=== PATIENT | female | born 1990 | race Caucasian/White ===

== ENCOUNTER 2017-08-28 09:00 | Observation (INO) | payer OTHER ==
[~2017-08-28] VITALS: Ht 157.5 cm; Wt 72.6 kg
== END 2017-08-28 10:45 | disposition home or self-care (01) ==
LOC: SPU 09:00
PROVIDERS: ADMIT Obstetrics & Gynecology; ATTEND Obstetrics & Gynecology
DX: Z04.1 Encounter for examination and observation following transport accident (principal); Z3A.35 35 weeks gestation of pregnancy
CPT/HCPCS: G0378

== ENCOUNTER 2017-10-01 04:55 | Inpatient (IN) | payer OTHER ==
[~2017-10-01] VITALS: Ht 157.5 cm; Wt 76.7 kg
[2017-10-01] MEDS ORDERED: OXYTOCIN/0.9 % SODIUM CHLORIDE 1,000 ML IV SCH ×2 (05:19→17:27)
[2017-10-01] MEDS ORDERED: LR 1,000 ML IV SCH (05:19)
[2017-10-01] MEDS ORDERED: LR 500 ML IV ONE ×2 (05:19→11:51)
[2017-10-01] MEDS ORDERED: LR 1,000 ML IV ONE (05:19)
[2017-10-01] MEDS ORDERED: NALBUPHINE HCL 10 MG/ML AMP IVP PRN (05:30)
[2017-10-01] MEDS ORDERED: NALBUPHINE HCL 10 MG/ML AMP IM PRN (05:30)
[2017-10-01] MEDS ORDERED: TERBUTALINE SULFATE 1 MG/ML VIAL SUBCUT ONE (05:30)
[2017-10-01] MEDS ORDERED: AMPICILLIN SODIUM 2 GM VIAL ONE (05:38)
[2017-10-01] MEDS ORDERED: AMPICILLIN SODIUM 2 GM in NS 100 ML IV ONE (06:00)
[2017-10-01 09:12] VITALS: BP_SYST 116
[2017-10-01 09:15] LABS: HEMATOCRIT 39.4 % (36-48); HEMOGLOBIN 13.4 g/dL (12.0-16.0); MEAN CORPUSCULAR HEMOGLOBIN 32 pg (27-31); MEAN CORPUSCULAR HGB CONC 34 % (32-36); MEAN CORPUSCULAR VOLUME 94 fL (79.0-98.0); PLATELET COUNT (AUTO) 209 K/uL (130-430); RED BLOOD CELL COUNT(AUTO) 4.18 MIL/uL (4.2-6.2); RED CELL DISTRIBUTION WIDTH 13.1 % (9.0-15.0); WHITE BLOOD COUNT (AUTO) 20.4 K/uL (4.8-10.8)
[2017-10-01 09:35] LABS: BAND % (MANUAL) 3 % (0-6); BASOPHILS % (MANUAL) 0 % (0-2); EOSINOPHILS % (MANUAL) 0 % (0-7); LYMPHOCYTES % (MANUAL) 6 % (20-46); MONOCYTES % (MANUAL) 4 % (0-11)
[2017-10-01] MEDS: AMPICILLIN SODIUM 1 GM in NS 50 ML IV SCH ×2 (09:59→14:12)
[2017-10-01] MEDS ORDERED: MORPHINE SULFATE 10 MG/ML VIAL ONE (10:52)
[2017-10-01] MEDS ORDERED: MORPHINE SULFATE 10 MG/ML VIAL IVP ONE (11:00)
[2017-10-01] MEDS ORDERED: fentaNYL CITRATE/PF 100 MCG/2 ML AMP ONE (11:26)
[2017-10-01] MEDS ORDERED: ROPIVACAINE 0.2% 100 ML ONE (11:27)
[2017-10-01] MEDS ORDERED: fentaNYL CITRATE/PF 100 MCG/2 ML AMP EP ONE (12:00)
[2017-10-01] MEDS ORDERED: FENT2mCg/mL-ROPIVA0.2%/NS EPID 150 ML EP SCH (12:00)
[2017-10-01] MEDS ORDERED: ePHEDrine sulfate 50 MG/ML VIAL IVP PRN (12:00)
[2017-10-01] MEDS ORDERED: OXYTOCIN/0.9 % SODIUM CHLORIDE 1,000 ML IV ONE (17:27)
[2017-10-01] MEDS ORDERED: OXYCODONE/ACETAMINOPHEN 5-325 TABLET PO PRN ×2 (17:30)
[2017-10-01] MEDS ORDERED: SENNOSIDES/DOCUSATE SODIUM 1 TAB TABLET(SENOKOT-S) PO PRN (17:30)
[2017-10-01] MEDS ORDERED: DOCUSATE SODIUM 100 MG CAPSULE PO PRN (17:30)
[2017-10-01] MEDS ORDERED: RHO(D) IMMUNE GLOBULIN/MALTOSE 1500 UNITS/1.3 ML (WINHRO) IM PRN (17:30)
[2017-10-01] MEDS ORDERED: ACETAMINOPHEN 325 MG TABLET PO PRN (17:30)
[2017-10-01] MEDS ORDERED: METHYLERGONOVINE MALEATE 0.2 MG TABLET PO PRN (17:30)
[2017-10-01] MEDS ORDERED: GLYCERIN/WITCH HAZEL (TUCKS PADS) TP PRN (17:30)
[2017-10-01] MEDS ORDERED: ANUSOL 1 EA SUPP.RECT (PREPARATION H) RC PRN (17:30)
[2017-10-01] MEDS ORDERED: LANOLIN 7 GM OINT. TP PRN (17:30)
[2017-10-01] MEDS ORDERED: DERMOPLAST SPRAY TP PRN (17:30)
[2017-10-01] MEDS ORDERED: MEASLES,MUMPS&RUBELLA VACC/PF 12500 UNIT/0.5 ML VIAL SUBQ PRN (17:30)
[2017-10-01] MEDS ORDERED: HYDROCORTISONE 0.5%, 28.35 GM TOPICAL CREAM TP PRN (17:30)
[2017-10-01] MEDS ORDERED: IBUPROFEN 600 MG TABLET ONE (18:08)
[2017-10-01] MEDS ORDERED: TEMAZEPAM 15 MG CAPSULE PO PRN (21:00)
[2017-10-02] MEDS: IBUPROFEN 600 MG TABLET PO SCH ×4 (00:15→18:40)
[2017-10-02 06:22] LABS: BASOPHILS # (AUTO) 0.2 K/uL (0.0-0.2); EOSINOPHILS # (AUTO) 0.1 K/uL (0.0-0.4); EOSINOPHILS % (AUTO) 0.4 % (0.0-4.0); HEMATOCRIT 31.8 % (36-48); HEMOGLOBIN 10.8 g/dL (12.0-16.0); LYMPHOCYTES # (AUTO) 1.9 K/uL (1.0-5.5); LYMPHOCYTES % (AUTO) 11.1 % (20.5-51.5); MEAN CORPUSCULAR HEMOGLOBIN 32 pg (27-31); MEAN CORPUSCULAR HGB CONC 34 % (32-36); MEAN CORPUSCULAR VOLUME 96 fL (79.0-98.0); MONOCYTES # (AUTO) 1.2 K/uL (0.0-1.0); NEUTROPHILS # (AUTO) 13.5 K/uL (1.8-7.7); NEUTROPHILS % (AUTO) 80.5 % (40.0-70.0); PLATELET COUNT (AUTO) 190 K/uL (130-430); RED BLOOD CELL COUNT(AUTO) 3.32 MIL/uL (4.2-6.2); RED CELL DISTRIBUTION WIDTH 12.8 % (9.0-15.0); WHITE BLOOD COUNT (AUTO) 16.9 K/uL (4.8-10.8)
[2017-10-02] MEDS ORDERED: ROPIVACAINE 40 MG/20 ML AMP EP ONE (09:42)
[2017-10-02] MEDS ORDERED: MINERAL OIL 30 ML UDC PO ONE (09:46)
[2017-10-03] MEDS: IBUPROFEN 600 MG TABLET PO SCH (00:06)
== END 2017-10-03 11:00 | disposition home or self-care (01) | DRG 775 ==
LOC: SPU 04:55
PROVIDERS: ADMIT Obstetrics & Gynecology; ATTEND Obstetrics & Gynecology
PROC: 10E0XZZ Delivery of Products of Conception, External Approach (ICD-10-PCS; principal; 2017-10-01)
PROC: 3E0R3BZ Introduction of Anesthetic Agent into Spinal Canal, Percutaneous Approach (ICD-10-PCS; 2017-10-01)
PROC: 00HU33Z Insertion of Infusion Device into Spinal Canal, Percutaneous Approach (ICD-10-PCS; 2017-10-01)
DX: O99.824 Streptococcus B carrier state complicating childbirth (principal); Z37.0 Single live birth; Z3A.40 40 weeks gestation of pregnancy
CPT/HCPCS: 36415; 85007; 85025; 85027; 86592; 86886; 86900; 86901; J0290; J2270; J2300; J2590; J2795; J3010; J7120

== ENCOUNTER 2021-10-28 16:46 | Observation (INO) | payer OTHER | END 2021-10-28 17:57 | disposition home or self-care (01) | LOC: SPU 16:46 | PROVIDERS: ADMIT Specialist; ATTEND Specialist | DX: O26.853 Spotting complicating pregnancy, third trimester (principal); Z3A.30 30 weeks gestation of pregnancy | CPT/HCPCS: 81002; G0378; G0379 ==

== ENCOUNTER 2021-12-27 04:58 | Inpatient (IN) | payer OTHER ==
[~2021-12-27] VITALS: Ht 157.5 cm; Wt 77.1 kg
[2021-12-27] MEDS ORDERED: AMPICILLIN SODIUM 1 GM in NS 50 ML IV SCH (05:15)
[2021-12-27] MEDS ORDERED: LR 1,000 ML IV SCH (05:15)
[2021-12-27] MEDS ORDERED: NALBUPHINE HCL 10 MG/ML AMP IVP PRN (05:15)
[2021-12-27] MEDS ORDERED: OXYTOCIN/0.9 % SODIUM CHLORIDE 1,000 ML IV SCH ×2 (05:15→15:15)
[2021-12-27] MEDS ORDERED: LR 1,000 ML IV ONE (05:15)
[2021-12-27] MEDS ORDERED: TERBUTALINE SULFATE 1 MG/ML VIAL SUBCUT ONE (05:15)
[2021-12-27] MEDS ORDERED: LR 500 ML IV ONE (05:15)
[2021-12-27] MEDS ORDERED: AMPICILLIN SODIUM 2 GM in NS 100 ML IV ONE (05:15)
[2021-12-27 05:36] LABS: HEMOGLOBIN 11.8 g/dL (12.0-16.0); PLATELET COUNT (AUTO) 198 K/uL (130-430)
[2021-12-27] MEDS ORDERED: NALBUPHINE HCL 10 MG/ML AMP ONE (05:36)
[2021-12-27 05:44] LABS: BASOPHILS # (AUTO) 0.1 K/uL (0.0-0.2); BASOPHILS % (AUTO) 0.6 % (0.0-2.0); EOSINOPHILS % (AUTO) 0.2 % (0.0-4.0); HEMATOCRIT 34.2 % (36-48); LYMPHOCYTES # (AUTO) 1.6 K/uL (1.0-5.5); LYMPHOCYTES % (AUTO) 12.1 % (20.5-51.5); MEAN CORPUSCULAR HEMOGLOBIN 30 pg (27-31); MEAN CORPUSCULAR HGB CONC 35 % (32-36); MEAN CORPUSCULAR VOLUME 86 fL (79.0-98.0); MONOCYTES # (AUTO) 0.8 K/uL (0.0-1.0); MONOCYTES % (AUTO) 5.9 % (1.7-9.3); NEUTROPHILS # (AUTO) 10.6 K/uL (1.8-7.7); NEUTROPHILS % (AUTO) 81.2 % (40.0-70.0); RED BLOOD CELL COUNT(AUTO) 4.01 MIL/uL (4.2-6.2); RED CELL DISTRIBUTION WIDTH 13.3 % (9.0-15.0)
[2021-12-27 06:18] VITALS: BP_SYST 123
[2021-12-27] MEDS ORDERED: fentaNYL CITRATE/PF 100 MCG/2 ML AMP ONE (06:29)
[2021-12-27] MEDS ORDERED: FENT2mCg/mL-ROPIVA0.2%/NS EPID 200 ML EP SCH (06:29)
[2021-12-27] MEDS ORDERED: ROPIVACAINE HCL/PF 0.2% 200 ML ONE (06:30)
[2021-12-27] MEDS ORDERED: LIGHT MINERAL OIL 10 ML VIAL MC ONE ×2 (14:58→15:52)
[2021-12-27] MEDS ORDERED: METHYLERGONOVINE MALEATE 0.2 MG/ML AMP IM ONE (15:00)
[2021-12-27] MEDS ORDERED: METHYLERGONOVINE MALEATE 0.2 MG/ML AMP ONE (15:09)
[2021-12-27] MEDS ORDERED: NALOXONE HCL 0.4 MG/ML AMP (NARCAN) IVP PRN (15:15)
[2021-12-27] MEDS ORDERED: OXYCODONE/ACETAMINOPHEN 5-325 TABLET PO PRN ×2 (15:15)
[2021-12-27] MEDS ORDERED: METHYLERGONOVINE MALEATE 0.2 MG TABLET PO PRN (15:15)
[2021-12-27] MEDS ORDERED: DIPH-TET-PERTUS Vaccine 0.5 ML VIAL (ADACEL) I.M. PRN (15:15)
[2021-12-27] MEDS ORDERED: ANUSOL 1 EA SUPP.RECT (PREPARATION H) RC PRN (15:15)
[2021-12-27] MEDS ORDERED: HYDROcodone/ACETAMIN 5-325 MG TAB (NORCO/ VICODIN) PO PRN (15:15)
[2021-12-27] MEDS ORDERED: LANOLIN 7 GM OINT. TP PRN (15:15)
[2021-12-27] MEDS ORDERED: WITCH HAZEL LEAF 1 MED.PAD MED.PAD TP PRN (15:15)
[2021-12-27] MEDS ORDERED: HYDROCORTISONE 0.5% CREAM 28.4 GM CREAM.GM. TP PRN (15:15)
[2021-12-27] MEDS ORDERED: DERMOPLAST SPRAY TP PRN (15:15)
[2021-12-27] MEDS ORDERED: MEASLES,MUMPS&RUBELLA VACC/PF 12500 UNIT/0.5 ML VIAL SUBQ PRN (15:15)
[2021-12-27] MEDS ORDERED: RHO(D) IMMUNE GLOBULIN/MALTOSE 1500 UNITS/1.3 ML (WINHRO) IM PRN (15:15)
[2021-12-27] MEDS ORDERED: OXYTOCIN/0.9 % SODIUM CHLORIDE 1,000 ML IV ONE (15:15)
[2021-12-27] MEDS ORDERED: NALOXONE HCL 0.4 MG/ML AMP (NARCAN) ONE (15:53)
[2021-12-27] MEDS ORDERED: LIDOCAINE PF 1% 30ML(POUR BTL) INJ ONE (15:53)
[2021-12-27] MEDS: IBUPROFEN 600 MG TABLET PO SCH ×2 (18:18→23:49)
[2021-12-27] MEDS ORDERED: TEMAZEPAM 15 MG CAPSULE PO PRN (21:00)
[2021-12-27] MEDS: SENNOSIDES/DOCUSATE SODIUM 1 TAB TABLET(SENOKOT-S) PO SCH (21:21)
[2021-12-28] MEDS: IBUPROFEN 600 MG TABLET PO SCH ×3 (05:35→17:38)
[2021-12-28 05:59] LABS: BASOPHILS % (AUTO) 0.3 % (0.0-2.0); EOSINOPHILS % (AUTO) 0.3 % (0.0-4.0); HEMATOCRIT 27.3 % (36-48); HEMOGLOBIN 9.2 g/dL (12.0-16.0); LYMPHOCYTES # (AUTO) 1.6 K/uL (1.0-5.5); LYMPHOCYTES % (AUTO) 13.5 % (20.5-51.5); MEAN CORPUSCULAR HEMOGLOBIN 29 pg (27-31); MEAN CORPUSCULAR HGB CONC 34 % (32-36); MEAN CORPUSCULAR VOLUME 86 fL (79.0-98.0); MONOCYTES # (AUTO) 0.7 K/uL (0.0-1.0); MONOCYTES % (AUTO) 5.6 % (1.7-9.3); NEUTROPHILS # (AUTO) 9.7 K/uL (1.8-7.7); NEUTROPHILS % (AUTO) 80.3 % (40.0-70.0); PLATELET COUNT (AUTO) 163 K/uL (130-430); RED BLOOD CELL COUNT(AUTO) 3.16 MIL/uL (4.2-6.2); RED CELL DISTRIBUTION WIDTH 13.4 % (9.0-15.0); WHITE BLOOD COUNT (AUTO) 12.1 K/uL (4.8-10.8)
[2021-12-28] MEDS: DOCUSATE SODIUM 100 MG CAPSULE PO SCH ×2 (12:44→17:37)
[2021-12-28] MEDS: SENNOSIDES/DOCUSATE SODIUM 1 TAB TABLET(SENOKOT-S) PO SCH (17:37)
[2021-12-31 20:06] LABS: FTA-Ab (T PALLIDUM) Non Reactive (Non Reactive)
== END 2021-12-28 17:52 | disposition home or self-care (01) | DRG 806 ==
LOC: SPU 04:58
PROVIDERS: ADMIT Specialist; ATTEND Specialist
PROC: 10E0XZZ Delivery of Products of Conception, External Approach (ICD-10-PCS; principal; 2021-12-27)
PROC: 0W8NXZZ Division of Female Perineum, External Approach (ICD-10-PCS; 2021-12-27)
PROC: 3E0R3BZ Introduction of Anesthetic Agent into Spinal Canal, Percutaneous Approach (ICD-10-PCS; 2021-12-27)
PROC: 00HU33Z Insertion of Infusion Device into Spinal Canal, Percutaneous Approach (ICD-10-PCS; 2021-12-27)
DX: O77.0 Labor and delivery complicated by meconium in amniotic fluid (principal); D62 Acute posthemorrhagic anemia; Z37.0 Single live birth; Z20.822 Contact with and (suspected) exposure to COVID-19; Z3A.39 39 weeks gestation of pregnancy
CPT/HCPCS: 36415; 81002; 85025; 86592; 86780; 86886; 86900; 86901; 94760; J0290; J2001; J2210; J2300; J2310; J2590; J3010; J3105